=== PATIENT | male | born 1970 | race Caucasian/White ===

== ENCOUNTER 2016-11-24 19:05 | Emergency (ER) | payer OTHER | END 2016-11-24 23:51 | disposition home or self-care (01) | LOC: FER 19:05 | DX: M25.462 Effusion, left knee (principal); M54.9 Dorsalgia, unspecified; E78.5 Hyperlipidemia, unspecified; K21.9 Gastro-esophageal reflux disease without esophagitis; Z79.899 Other long term (current) drug therapy; Z98.890 Other specified postprocedural states | CPT/HCPCS: 99283 ==